=== PATIENT | male | born 1990 | race Caucasian/White ===

== ENCOUNTER 2022-06-22 08:46 | Emergency (ER) | payer OTHER, SELFPAY ==
[2022-06-22 09:02] VITALS: BP 145/78; PULSE 85; RESP 16; TEMP 36.5; O2SAT 100
--- NOTE | 2022-06-22 09:41 | ED.SKABFB ---
HPI - Skin/Abscess/Foreign Bdy General Chief complaint: Skin/Abscess/Foreign Body Stated complaint: rash left leg Time Seen by Provider: 06/22/22 09:20 Source: RN notes reviewed and old records reviewed Mode of arrival: ambulatory Limitations: no limitations History of Present Illness HPI narrative: 32-year-old male who presents to express care with complaints of having some type of bites to the posterior aspect of his left knee region approximately a week ago. Patient states another lesion laterally to original lesions popped up 3 to 4 days ago. Patient is concerned with possible staph infection states he talked with his sister who is a doctor and she stated he needed to be treated. Patient works for a [employer] and he is states he goes in and out of different peoples homes that are not the cleanest and thinks he must of been bitten by something or picked up some type of infection which has caused these lesions. MD complaint: insect bite/sting and lesion Onset (ago): week(s) (first 2 lesions and last 3-4 days ago) Tetanus up to date: yes Location: LLE (behind knee) Severity scale (1-10): 6 Quality: aching Related Data Allergies Allergy/AdvReac Type Severity Reaction Status Date / Time No Known Allergies Allergy Verified 06/22/22 09:30 Review of Systems Review of Systems: CONSTITUTIONAL: Denies fever, chills, or sweats. CARDIOVASCULAR: Denies chest pain, palpitations, or edema. RESPIRATORY: Denies cough or dyspnea. SKIN: Reports 3lesions behind his left knee area with 2 areas scabbed and 1 area red with surrounding erythema, no fluctuance of tissue MUSCULOSKELETAL: Denies joint pain or myalgia. NEUROLOGIC: Denies headache, numbness, or weakness. All systems reviewed & are unremarkable except as noted in HPI and below PMFSH Past Medical History Medical History (Updated 06/23/22 @ 09:14 by Nadia Maravilla NP) Varicose vein of leg cauterized right leg Surgical History Surgical History (Updated 06/23/22 @ 09:15 by Nadia Maravilla NP) History of removal of neck cyst Family History Family History Father Hypertension Mother Patient's mother is in good health Grandparent Family history of lung cancer Family history of dementia, Onset Age: 80 Family history of malignant neoplasm of ovary, Onset Age: 82 Social History Social History (Updated 06/23/22 @ 09:11 by Nadia Maravilla NP) Smoking packs per day: 1 Smoking cigarettes per day: 20.0 Smoking status: Heavy tobacco smoker Second hand tobacco smoke exposure: No Alcohol intake: current Drinks per week: 1 Alcohol use details: drinks 1 beer daily Substance use: never Living arrangements: alone Gender identity (if verbalized by the patient): Male Sexual Orientation (if Verbalized by the Patient): Straight or Heterosexual Comments At time of signature, agree with nursing past medical, surgical, social and family history. There is no relevant family history pertinent to the presenting complaint Exam Narrative: GENERAL: Well-appearing, well-nourished, and in no acute distress. HEAD: Normocephalic, atraumatic. EYES: PERRLA, conjunctivae clear, and EOMI. ENT: Mucous membranes moist. Oropharynx without edema, erythema or lesions. NECK: Supple. No lymphadenopathy CHEST: Clear to auscultation. No respiratory distress. HEART: Regular rate and rhythm. SKIN: Warm, dry.?3 lesions noted to back of left knee 2 are scabbed, lateral lesion also which has redness surrounding with no fluctuance of skin NEURO:? Alert and oriented x3. PSYCH: Normal mood and affect Course Course Emergency Course: Patient is aware of diagnosis, understands and agrees to treatment plan.? Anticipatory guidance given.? Patient agrees to follow-up as directed and is aware of reasons to seek care at the emergency department. Portions of this record may have been cre
== END 2022-06-22 10:04 | disposition home or self-care (01) ==
PROVIDERS: Emergency Provider Registered Nurse
DX: S80.262A Insect bite (nonvenomous), left knee, initial encounter (principal); W57.XXXA Bitten or stung by nonvenomous insect and other nonvenomous arthropods, initial encounter; L02.416 Cutaneous abscess of left lower limb; F17.210 Nicotine dependence, cigarettes, uncomplicated
CPT/HCPCS: 99213; G0463